=== PATIENT | male | born 1965 | race Caucasian/White ===

== ENCOUNTER 2021-07-17 08:26 | Outpatient (CLI) | payer BC, SELFPAY ==
[2021-07-17 09:25] LABS: Alanine Aminotransferase 22 U/L (4-50); Albumin Level 4.5 g/dL (3.5-5.1); Alkaline Phosphatase 49 U/L (38-126); Anion Gap 11 mmol/L (8-16); Aspartate Amino Transferase 24 U/L (17-59); Bilirubin,Total 0.6 mg/dL (0.2-1.3); Blood Urea Nitrogen 17 mg/dL (9-20); Calcium 9.4 mg/dL (8.4-10.2); Carbon Dioxide 24 mmol/L (22-30); Chloride 105 mmol/L (98-107); Cholesterol 237 mg/dL (0-200); Estimated Glomerular Filt Rate > 60; Glucose 109 mg/dL (65-110); HDL Direct 35 mg/dL; Potassium 4.1 mmol/L (3.4-5.0); Sodium 140 mmol/L (137-145); Triglycerides 368 mg/dL (<150)
[2021-07-17 09:36] LABS: LDL Cholesterol Direct 92 mg/dL
[2021-07-17 09:54] LABS: Prostate Specific Antigen 0.7 ng/mL (< OR = 4.0)
== END 2021-07-17 08:27 | disposition home or self-care (01) ==
LOC: ANHLAB 08:29
PROVIDERS: PCP Internal Medicine; Visit Provider Nurse Practitioner
DX: Z12.5 Encounter for screening for malignant neoplasm of prostate (principal); E78.5 Hyperlipidemia, unspecified
CPT/HCPCS: 36415; 80053; 80061; 84153; G0103

== ENCOUNTER 2021-08-14 02:35 | Day surgery (SDC) | payer BC, SELFPAY ==
[2021-08-07 13:02] VITALS: BMI 32.5
[2021-08-14 07:48] VITALS: BP 172/86; PULSE 81; RESP 20; TEMP 36.4; O2SAT 97; BMI 32.5
[2021-08-14] MEDS: LACTATED RINGERS 1,000 ML 150 ML IV CONT (08:01)
--- NOTE | 2021-08-14 08:10 | WPDANESEPPF ---
Anes - Initial Pre Proc Eval Procedure: Operation Date: 08/14/21 08:30 Proposed Procedures p Screening Colonoscopy - Nicolás Marvin MD Date/Time: 08/14/21 08:10 Surgeon: Nicolás Marvin MD Pre Op Diagnosis: neoplasm screening Patient Data Age: 56 Gender: M Height: 1.75 m Weight: 100 kg Last Vital Signs Temp 97.5 F L 08/14/21 07:48 Pulse 81 08/14/21 07:48 Resp 20 08/14/21 07:48 BP 172/86 H 08/14/21 07:48 Pulse Ox 97 08/14/21 07:48 Allergies Allergy/AdvReac Type Severity Reaction Status Date / Time No Known Allergies Allergy Verified 08/14/21 08:02 Home Medications Medication Instructions Recorded Confirmed Type sildenafil (pulm.hypertension) 20 20 mg PO .prn #30 tablet 11/10/20 Rx mg tablet amlodipine 10 mg tablet See Rx Instructions .ROUTE 07/14/21 08/07/21 Rx .COMPLEX #90 tablet atorvastatin 20 mg tablet See Rx Instructions .ROUTE 07/14/21 08/07/21 Rx .COMPLEX #90 tablet betamethasone dipropionate 0.05 % 1 applic TOPICAL DAILY PRN g 07/17/21 08/07/21 History topical ointment fenofibrate nanocrystallized 145 145 mg PO DAILY #90 tablet 07/17/21 08/07/21 Rx mg tablet irbesartan 300 mg tablet 300 mg PO DAILY #90 tablet 07/17/21 08/07/21 Rx sod picosulf-mag ox-citric ac 160 ml PO DAILY #1 dose pk 08/12/21 Rx [Clenpiq] Patient hx anesthesia problems: none Family hx anesthesia problems: none Results Review: All pre-operative results and documents have been reviewed as part of the pre-operative evaluation. [facility] Past Medical History Medical History (Updated 07/17/21 @ 08:02 by Bao Buchanan APRN) Hyperlipidemia, unspecified Hypertension Uric acid renal calculus Family History Family History Mother Asthma Father Patient's father is in good health Sibling Family history of allergic disorder Social History Social History (Updated 07/17/21 @ 07:32 by Katy Jacob MA) Smoking status: Never smoker Alcohol intake: current Alcohol use details: social Substance use: never Living arrangements: with family Spiritual care concerns: No Anes - Eval Final PreProcedure Day of Procedure 08/14/21 08:10 Patient weight: obese Heart: regular rate and rhythm Lungs: clear to auscultation Airway: Mallampati scale class II Neurological: alert and oriented Last oral intake: >/= 8 hours ASA classification: II Emergent: no Anesthetic plan: proceed Anesthesia type and monitoring: general GIVS and standard monitoring Results Review: All pre-operative results and documents have been reviewed as part of the pre-operative evaluation. Informed Consent: The patient's anesthetic plan and its attendant risks and benefits were discussed with the patient/family/POA. Questions were solicited and answers provided to the satisfaction of the patient/family/POA.
--- NOTE | 2021-08-14 08:26 | PM.HPGS ---
History of Present Illness History of Present Illness Consent: Risks, benefits, and alternatives have been discussed and questions answered. Patient agrees to proceed with procedure. Chief complaint: neoplasm screening Narrative: Nomi Shah is a 56 year old male here for first screening colonoscopy Review of Systems Constitutional: Constitutional: Denies headache(s) and Denies weakness Eyes: Eyes: Denies blurry vision ENT: Reports Normal hearing present, Denies headache(s) and Denies neck pain Cardiovascular: Cardiovascular: Denies chest pain and Denies dyspnea Respiratory: Respiratory: Denies dyspnea Gastrointestinal: Gastrointestinal: Reports no additional gastrointestinal complaints Genitourinary: Genitourinary: Denies dysuria Musculoskeletal: Musculoskeletal: Denies neck pain Integumentary/Breasts: Skin/Breast: Denies dry skin Neurologic: Reports Normal hearing present, Denies headache(s) and Denies weakness Psychiatric: Psychiatric: Denies anxiety Endocrine: Endocrine: Denies change in body appearance Hematologic/Lymphatic: Hematologic/Lymphatic: Denies easy bleeding Allergic/Immunologic: Allergic/Immunologic: Denies urticaria PMF Past Medical History Medical History (Updated 07/17/21 @ 08:02 by Bao Buchanan APRN) Hyperlipidemia, unspecified Hypertension Uric acid renal calculus Family History Family History Mother Asthma Father Patient's father is in good health Sibling Family history of allergic disorder Social History Social History (Updated 07/17/21 @ 07:32 by Katy Jacob MA) Smoking status: Never smoker Alcohol intake: current Alcohol use details: social Substance use: never Living arrangements: with family Spiritual care concerns: No Meds Home Medications and Allergies Home Medications Medication Instructions Recorded Confirmed Type sildenafil (pulm.hypertension) 20 20 mg PO .prn #30 tablet 11/10/20 Rx mg tablet amlodipine 10 mg tablet See Rx Instructions .ROUTE 07/14/21 08/07/21 Rx .COMPLEX #90 tablet atorvastatin 20 mg tablet See Rx Instructions .ROUTE 07/14/21 08/07/21 Rx .COMPLEX #90 tablet betamethasone dipropionate 0.05 % 1 applic TOPICAL DAILY PRN g 07/17/21 08/07/21 History topical ointment fenofibrate nanocrystallized 145 145 mg PO DAILY #90 tablet 07/17/21 08/07/21 Rx mg tablet irbesartan 300 mg tablet 300 mg PO DAILY #90 tablet 07/17/21 08/07/21 Rx sod picosulf-mag ox-citric ac 160 ml PO DAILY #1 dose pk 08/12/21 Rx [Clenpiq] Allergies Allergy/AdvReac Type Severity Reaction Status Date / Time No Known Allergies Allergy Verified 08/14/21 08:02 Vital Signs Vital Signs - 24 hr 08/14/21 07:48 Temperature 97.5 F L Pulse Rate 81 Respiratory Rate 20 Blood Pressure 172/86 H Pulse Oximetry 97 Exam Const: General: comfortable and no acute distress HENMT: General nose exam: Normal nares present Eyes: General: appearance normal, both eyes and all related structures Neck: Neck: no JVD Resp: Auscultation: clear to auscultation bilaterally Cardio: Rate: regular rate Rhythm: regular rhythm GI: Inspection: non-distended GI Palp: Yes Soft to palpation Skin: General skin exam: normal color Neuro: General: gait normal Speech: normal speech Extrem: General: normal to inspection Psych: Mental Status: mental status grossly normal Assessment and Plan Assessment and plan (1) Screening for colon cancer: Code(s): Z12.11 - Encounter for screening for malignant neoplasm of colon Status: Acute Assessment and Plan: colonoscopy
[2021-08-14 08:48] VITALS: BP 119/69; PULSE 81; RESP 19; O2SAT 95
[2021-08-14 08:58] VITALS: BP 110/68; PULSE 78; RESP 25; O2SAT 96
[2021-08-14 09:08] VITALS: BP 130/80; PULSE 73; RESP 22; O2SAT 97
== END 2021-08-14 09:16 | disposition home or self-care (01) ==
PROVIDERS: PCP Internal Medicine; Visit Provider Internal Medicine Gastroenterology
PROC: 0DJD8ZZ Inspection of Lower Intestinal Tract, Via Natural or Artificial Opening Endoscopic (ICD-10-PCS; CPT 45378; principal; 2021-08-14 08:30)
DX: Z12.11 Encounter for screening for malignant neoplasm of colon (principal); D12.8 Benign neoplasm of rectum; K64.8 Other hemorrhoids; E66.9 Obesity, unspecified; Z68.32 Body mass index [BMI] 32.0-32.9, adult
CPT/HCPCS: 45385; 88305; J2704; J7120

== ENCOUNTER 2022-10-21 08:21 | Outpatient (CLI) | payer BC, SELFPAY ==
[2022-10-21 10:26] LABS: Alanine Aminotransferase 32 U/L (6-50); Albumin Level 4.8 g/dL (3.5-5.1); Alkaline Phosphatase 43 U/L (38-126); Anion Gap 10 mmol/L (8-16); Aspartate Amino Transferase 31 U/L (17-59); Bilirubin,Total 0.5 mg/dL (0.2-1.3); Blood Urea Nitrogen 16 mg/dL (9-20); Calcium 9.5 mg/dL (8.4-10.2); Carbon Dioxide 27 mmol/L (22-30); Chloride 104 mmol/L (98-107); Cholesterol 248 mg/dL (0-200); Estimated Glomerular Filt Rate > 60; Glucose 108 mg/dL (65-110); HDL Direct 38 mg/dL; Potassium 4.1 mmol/L (3.4-5.0); Sodium 141 mmol/L (137-145); Triglycerides 279 mg/dL (<150)
[2022-10-21 10:37] LABS: LDL Cholesterol Direct 137 mg/dL
[2022-10-21 10:44] LABS: Hemoglobin A1C 5.6 % (<5.7)
[2022-10-21 11:00] LABS: Prostate Specific Antigen 0.6 ng/mL (< OR = 4.0)
== END 2022-10-21 08:22 | disposition home or self-care (01) ==
PROVIDERS: PCP Internal Medicine; Visit Provider Nurse Practitioner
DX: E78.5 Hyperlipidemia, unspecified (principal); Z12.5 Encounter for screening for malignant neoplasm of prostate; Z79.899 Other long term (current) drug therapy
CPT/HCPCS: 36415; 80053; 80061; 83036; 84153; G0103